=== PATIENT | female | born 1970 | race Two or more races ===

== ENCOUNTER 2019-09-07 09:48 | Emergency (ER) | payer MEDICAID ==
[~2019-09-07] VITALS: Ht 157.5 cm; Wt 45.4 kg
[2019-09-07] MEDS ORDERED: TRAZODONE HCL150 MG ORAL (09:59)
--- NOTE | 2019-09-07 10:12 | Emergency Room Report ---
History of Present Illness General Chief Complaint: Lower Extremity Injury Source: Patient Present Illness HPI Disclaimer: Please note that this report is being documented using DRAGON technology. This can lead to erroneous entry secondary to incorrect interpretation by the dictating instrument. HPI: 48-year-old female presents for evaluation of left knee pain. Symptoms began yesterday afternoon. There was no trauma, no bending injury, no twisting injury. The patient had a torn Achilles 1.5 years ago and states that it healed back spontaneously though is significantly shortened causing her to walk on her toes for the last year. She has recently started to loosen up in the Achilles and just yesterday able to place her heel on the ground while walking. She then began to experience pain over the tibia while bearing weight. Pain is relieved by laying down. She has been using tramadol at home. States she has difficulty ambulating due to the pain reports some instability as well. Denies history of gout, pseudogout, inflammatory conditions. Denies any warmth , effusion, edema or limitation in range of motion. PMH: Heart failure PSH: Denies Allergies: Denies Social Hx: Denies Allergies: Coded Allergies: No Known Allergies (Unverified , 09/07/19) Nursing Documentation-PMH Past Medical History: No History, Except For History Of Psychiatric Problem: Yes - bipolar, schizophrenia Review of Systems All Other Systems: negative except mentioned in HPI Physical Exam Vital Signs Date Time Temp Pulse Resp B/P (MAP) Pulse Ox O2 Delivery O2 Flow Rate FiO2 09/07/19 09:54 97.5 96 18 103/69 (80) 98 Room Air General: Awake and alert, no acute distress HEENT: NC/AT. EOMI. Resp: Normal work of breathing Skin: Intact. No abrasions, laceration or rash over the exposed skin. No warmth, no edema MSK: Normal tone and bulk. Moving all extremities. No obvious deformity. Tenderness over the tibial tuberosity of the left knee. No tenderness over the patella. No effusion, no edema, erythema, warmth palpable on the left knee. Full range of motion. No instability on varus or valgus testing. Lockman test is negative. Sensation is intact over the lower extremity dermatomes bilaterally. Stiffness is on ankle dorsiflexion but otherwise lower extremities are unremarkable. Neuro: Awake and alert. Mentating appropriately Medical Decision Making Diagnostic Impression: Primary Impression: Knee pain ER Course 48-year-old female presents for evaluation of atraumatic left knee pain shortly after she began walking again after an Achilles tendon injury 1.5 years ago. May be a new strain as she is now walking on her heel again for the first time in 1.5 years though occult injury or avulsion fracture also possible. On the differentials also gout, pseudogout, septic joint though clinically have very little suspicion for these conditions and the patient has no history or risk factors. Will obtain an x-ray to rule out occult fracture, placed in a knee brace, treat with NSAIDs and provide crutches. Other X-Ray Diagnostic Results Other X-Ray Diagnostic Results : X-Ray ordered: Left knee # of Views/Limited Vs Complete: Complete Indication: Pain Interpretation: no dislocation, no soft tissue swelling, no fractures Impression: No acute disease Electronically Signed by: Electronically signed by Dr. Deniz Harp Reevaluation Time: 11:17 Last Vital Signs Date Time Temp Pulse Resp B/P (MAP) Pulse Ox O2 Delivery O2 Flow Rate FiO2 09/07/19 09:54 97.5 96 18 103/69 (80) 98 Room Air Reevaluation Impression No evidence of fracture or dislocation. May be a ligamentous injury. Govind wrap was applied. The patient was also requesting some sort of a walking boot to help with her stiff Achilles. We have made a posterior splint for her applied with an Govind wrap that she can take on and off as needed. A cane was also provided. She will follow-up with orthopedic center as an outpatient for further management. Discussed reasons to return to the emergency department. She understands and agrees with this treatment plan. Disposition: HOME, SELF-CARE Condition: Stable Scripts Ibuprofen* (MOTRIN*) 600 Mg Tablet 600 MG ORAL Q8H PRN for For Pain, #30 TAB 0 Refills Prov: Deniz Harp MD 09/07/19 Deniz Harp MD Sep 07, 2019 10:12
[2019-09-07] MEDS ORDERED: IBUPROFEN600 MG ORAL (10:59)
[2019-09-07 11:11] VITALS: BP 100/70
--- NOTE | 2019-09-07 14:35 | Diagnostic Imaging Report ---
Indication: Left knee trauma, pain Technique: 3 views of the left knee Comparison: None Findings: No acute fractures. No dislocations. No suprapatellar effusion. The joint spaces are preserved. No radiopaque foreign body Impression: Negative
== END 2019-09-07 11:09 | disposition home or self-care (01) ==
LOC: EMR 10:10
DX: M25.562 Pain in left knee (principal)
CPT/HCPCS: 73562; Z7502; 99283